=== PATIENT | female | born 2000 | race Caucasian/White ===

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

== ENCOUNTER 2021-07-09 09:36 | Outpatient (CLI) | payer OTHER | END 2021-07-09 09:37 | disposition home or self-care (01) | LOC: BICULT 09:36 | PROVIDERS: ATTEND Student in an Organized Health Care Education/Training Program | DX: N64.4 Mastodynia (principal) ==